=== PATIENT | female | born 1955 ===

== ENCOUNTER 2024-01-25 08:33 | Outpatient (CLI) | payer MEDICARE, SELFPAY ==
--- NOTE | ~2024-01-25 | XR_ITS ---
MODIFIED ESOPHAGRAM HISTORY: Dysphagia. TECHNIQUE: Modified barium esophagram was performed on 01/25/2024. I administered fluoroscopy and perf ormed the exam with speech pathologist. Patient was seated for lateral fluoroscopic imaging for ayaz stion of thin liquids, pudding, solids and quantified amounts, followed by thin liquids in uncontroll ed amounts. This was recorded on tape. A single fluoroscopic spot image was also recorded. The DAP fo r this procedure was 1.308 Gycm2. The amount of fluoroscopy time used during this procedure was 2.1 m inutes. FINDINGS: Oral stage: Adequate function. Pharyngeal stage: Adequate function. Cervical/esophageal stage: Adequate function. IMPRESSION: Patient tolerated regular consistency oral feedings in the upright position. Please deisy elate with speech pathologist findings and specific feeding recommendations. Reviewed, dictated and finalized at location A. IMPRESSION: Patient tolerated regular consistency oral feedings in the upright position. Please correlate with speech pathologist findings and specific feedi ng recommendations.
--- NOTE | 2024-01-25 12:48 | REHSTMBS ---
Assessment and note entered by Lesley Yusuf, [employer] MACHINE OPERATOR Modified Barium Swallow Evaluation Feeding Type Recommended Oral Food Consistency Pureed, Level 4 Liquid Consistency Thin (0) ST Clinical Summary MODIFIED BARIUM SWALLOW STUDY This patient was seen for a Modified Barium Swallow study at the request of her physician. Patient reports poor dentition with most teeth missing, and reported that recently, 3-4 months ago she had a fine needle aspiration of her thyroid because her thyroid was pressing on her esophagus. Patient reports that certain solid foods, especially meats, go down but then comes back up and I have to spit them out. She reported she mainly eats soft foods such as mashed potatoes. Patient was viewed in the lateral position to the level of C5/C6. She was presented with thin liquid contrast medium per cup and also per straw, pudding mixed with semi-solid contrast medium, and then two pieces of fruit cocktail and two pieces of vania cracker, both coated with the pudding mixture. She elicited quick swallows with no penetration/aspiration noted and no significant pharyngeal residue. Of note was her lack of dentition that most likely contributes to her difficulty masticating and swallowing meats. Results indicate patient may have a Regular Diet and Regular Liquids however she may prefer semi- solids such as yogurts, cottage cheese, casseroles with soups for moisture, ravioli, spaghetti, cut -up, etc. These suggestions were made to patient who voiced understanding. Thank you for this referral.
== END 2024-01-25 08:34 | disposition home or self-care (01) ==
LOC: ANHIMG 08:39
PROVIDERS: Visit Provider Otolaryngology
DX: R13.10 Dysphagia, unspecified (principal)
CPT/HCPCS: 92611